=== PATIENT | female | born 1930 | race Caucasian/White ===

== ENCOUNTER 2016-03-03 11:12 | Inpatient (IN) | payer MEDICARE, MEDICAID ==
[2016-03-03] MEDS ORDERED: NORMAL SALINE 1000 ML 1,000 ML IV ONE (11:23)
[2016-03-03] MEDS ORDERED: NORMAL SALINE 1000 ML 500 ML IV ONE ×2 (11:35→12:36)
--- NOTE | 2016-03-03 11:37 | ER Document Report ---
ED Blood Pressure Problem - General Mode of Arrival: Ambulatory Information source: Patient TRAVEL OUTSIDE OF THE [place] IN LAST 30 DAYS: No - HPI Patient complains to provider of: Low blood pressure, Other - "Not feeling well " Onset: Other - 2 weeks Associated symptoms: Other - see above <ASHLEY PETERSEN - Last Filed: 03/03/16 12:36> <IRINAJHONATAN DERAS MCKENZIE - Last Filed: 03/03/16 19:39> - General Stated Complaint: BLOOD PRESSURE ISSUE Notes: 85-year-old female with history of UTIs presents to the ED complaining of "not feeling well" for the past 2 weeks. Patient was being taken to a doctor's appointment from [facility] when a low blood pressure was taken. Patient was instead brought into the ED. Patient additionally complains of bilateral lower extremity edema, feeling faint, trouble urinating, burning with urination, fever , and occasional shortness of breath. Patient states that based on her previous experiences with UTIs, she does not feel like she is having one right now. Patient's primary care provider is Dr. Aguillon. Patient's indoor landscape architect is Dr. Pollard. (ASHLEY PETERSEN) - Related Data Allergies/Adverse Reactions: codeine [Codeine] Allergy (Verified 09/07/13 18:24) erythromycin base [Erythromycin Base] Allergy (Verified 09/07/13 18:24) gluten [Gluten] Allergy (Verified 10/11/14 11:40) iodine [Iodine] Allergy (Verified 10/10/14 22:48) Penicillins Allergy (Verified 09/07/13 18:24) sulfamethoxazole [From Septra DS] Allergy (Verified 10/10/14 22:48) trimethoprim [From Septra DS] Allergy (Verified 10/10/14 22:48) Past Medical History - General Information source: Patient - Social History Smoking Status: Unknown if Ever Smoked Family History: Hypertension - Past Medical History Cardiac Medical History: Reports: Hx Heart Attack, Hx Hypertension, Hx Peripheral Vascular Disease Pulmonary Medical History: Reports: Hx COPD Renal/ Medical History: Reports: Hx Renal Insufficiency, Other - Urinary Tract Infections Musculoskeltal Medical History: Reports Hx Arthritis Psychiatric Medical History: Reports: Hx Dementia - MILD Past Surgical History: Reports: Hx Orthopedic Surgery - hip, right wrist, Hx Vascular Surgery - Iliofemoral stents - Immunizations Hx Diphtheria, Pertussis, Tetanus Vaccination: No Hx Pneumococcal Vaccination: 12/09/12 <ASHLEY PETERSEN - Last Filed: 03/03/16 12:36> Review of Systems - Review of Systems Constitutional: See HPI, Fever, Malaise, Other - feels faint EENT: No symptoms reported Cardiovascular: No symptoms reported Respiratory: See HPI, Short of breath Gastrointestinal: No symptoms reported Genitourinary: See HPI, Burning, Dysuria Female Genitourinary: No symptoms reported Musculoskeletal: See HPI, Leg swelling Skin: No symptoms reported Hematologic/Lymphatic: No symptoms reported Neurological/Psychological: No symptoms reported -: Yes All other systems reviewed and negative <ASHLEY PETERSEN - Last Filed: 03/03/16 12:36> Physical Exam - Vital signs Interpretation: Hypotensive, Tachycardic - General General appearance: Alert In distress: None - HEENT Head: Normocephalic, Atraumatic Eyes: Normal Extraocular movements intact: Yes Pupils: PERRL - Respiratory Respiratory status: No respiratory distress Breath sounds: Normal - Cardiovascular Rhythm: Regular, Tachycardia Heart sounds: Normal auscultation - Abdominal Inspection: Normal - Back Back: Normal - Extremities General upper extremity: Normal inspection, Normal ROM General lower extremity: Edema - bilateral 1+ pitting edema, Normal ROM. No: Normal inspection - Neurological Neuro grossly intact: Yes Cognition: Normal Orientation: AAOx4 [place] Coma Scale Eye Opening: Spontaneous [place] Coma Scale Verbal: Oriented [place] Coma Scale Motor: Obeys Commands [place] Coma Scale Total: 15 Speech: Normal - Psychological Associated symptoms: Normal affect, Normal mood - Skin Skin Temperature: Warm Skin Moisture: Dry Skin Color: Pale <ASHLEY PETERSEN - Last Filed: 03/03/16 12:36> <JHONATAN WILKINS - Last Filed: 03/03/16 19:39> - Vital signs Vitals: Temp Pulse Resp BP Pulse Ox 97.5 F 142 H 18 80/52 L 95 03/03/16 11:30 03/03/16 11:30 03/03/16 11:30 03/03/16 11:30 03/03/16 11:30 (JHONATAN WILKINS) Course - Laboratory Result Diagrams: 03/03/16 11:27 03/03/16 11:27 <ASHLEY PETERSEN - Last Filed: 03/03/16 12:36> - Laboratory Result Diagrams: 03/03/16 11:27 03/03/16 11:27 - Diagnostic Test Radiology reviewed: Reports reviewed - EKG Interpretation by Me EKG shows normal: Sinus rhythm Rate: Tachycardia <JHONATAN WILKINS - Last Filed: 03/03/16 19:39> - Re-evaluation Re-evalutation: 03/03/16 Patient is an 85-year-old female with multiple comorbidities presents with tachycardia, hypotension. Patient initially had complained of dysuria but urine appears normal. Patient has bilateral pleural effusions and also some ascites and abdomen. Abdomen is nontender. No vomiting or diarrhea. Patient has been afebrile in the emergency department. Patient was discussed with hospitalist service and stat echo obtained to look for cardiac effusion. No pericardial effusion noted. Patient will be admitted and treated for pneumonia. She will be admitted to the IM. Patient wishes to be DO NOT RESUSCITATE. Patient is in fair condition at the time of admission. (JHONATAN WILKINS) - Vital Signs Vital signs: Temp Pulse Resp BP Pulse Ox 98.3 F 142 H 17 101/64 95 03/03/16 15:03 03/03/16 11:30 03/03/16 19:30 03/03/16 19:30 03/03/16 19:30 (JHONATAN WILKINS) - Laboratory Laboratory results interpreted by me: 03/03/16 03/03/16 11:27 11:27 WBC 15.8 H RDW 17.7 H Seg Neutrophils % 85.8 H Lymphocytes % 8.6 L Absolute Neutrophils 13.5 H Chloride 111 H BUN 40 H Creatinine 2.83 H Est GFR ( Amer) 19 L Est GFR (Non-Af Amer) 16 L Glucose 70 L Calcium 7.4 L Alkaline Phosphatase 137 H Total Protein 4.3 L Albumin 1.4 L (JHONATAN WILKINS) Critical Care Note - Critical Care Note Total time excluding time spent on procedures (mins): 60 - evaluation and management of tachycardia, hypotension, respiratory distress, fluid overload, multiple re-evaluations, coordination with hospitalist, counseling of patient and family <JHONATAN WILKINS - Last Filed: 03/03/16 19:39> Discharge <ASHLEY PETERSEN - Last Filed: 03/03/16 12:36> - [facility] ICU <JHONATAN WILKINS - Last Filed: 03/03/16 19:39> - Discharge Clinical Impression: [id number] renal failure, Pleural effusion, left, Respiratory distress Hypotension Qualifiers: Hypotension type: unspecified hypotension type Qualified Code(s): I95.9 - Hypotension, unspecified Pneumonia Qualifiers: Pneumonia type: due to unspecified organism Laterality: left Lung location: lower lobe of lung Qualified Code(s): J18.1 - Lobar pneumonia, unspecified organism Fluid overload Qualifiers: Hypervolemia type: unspecified Qualified Code(s): E87.70 - Fluid overload, unspecified Condition: Fair Disposition: ADMITTED INPATIENT Scribe Attestation: 03/03/16 19:38 I personally performed the services described in the documentation, reviewed and edited the documentation which was dictated to the scribe in my presence, and it accurately records my words and actions. (JHONATAN WILKINS) Scribe Documentation - Scribe Written by Scribe:: Rose Gama, 03/03/2016 12:44 acting as scribe for :: Pawel <ASHLEY PETERSEN - Last Filed: 03/03/16 12:36>
[2016-03-03 11:49] LABS: ABSOLUTE EOSINOPHILS # (AUTO) 0.1 10^3/uL (0.0-0.6); ABSOLUTE LYMPHOCYTES (AUTO) 1.3 10^3/uL (0.5-4.7); ABSOLUTE MONOCYTES (AUTO) 0.7 10^3/uL (0.1-1.4); ABSOLUTE NEUT (AUTO) 13.5 10^3/uL (1.7-8.2); BASOPHILS % (AUTO) 0.2 % (0-2); EOSINOPHILS % (AUTO) 0.8 % (0-6); HEMATOCRIT 36.8 % (36.0-47.0); HEMOGLOBIN 12.3 g/dL (12.0-15.5); HGB HCT DIFFERENCE 0.1; LYMPHOCYTES % (AUTO) 8.6 % (13-45); MEAN CORPUSCULAR HEMOGLOBIN 32.3 pg (27.0-33.4); MEAN CORPUSCULAR HGB CONC 33.3 g/dL (32.0-36.0); MEAN CORPUSCULAR VOLUME 97 fl (80-97); MONOCYTES % (AUTO) 4.6 % (3-13); RED CELL DISTRIBUTION WIDTH 17.7 % (11.5-14.0); SEGMENTED NEUTROPHILS % (AUTO) 85.8 % (42-78); WHITE BLOOD COUNT 15.8 10^3/uL (4.0-10.5)
[2016-03-03 11:54] LABS: VENOUS BLOOD BASE EXCESS -4.8 mmol/L; VENOUS BLOOD HCO3 21.5 mmol/L (20-32); VENOUS BLOOD PCO2 44.5 mmHg (35-63); VENOUS BLOOD PH 7.3 (7.30-7.42)
[2016-03-03 11:56] LABS: PROTHROMBIN TIME 14.2 SEC (11.4-15.4)
[2016-03-03 12:06] LABS: APPEARANCE,URINE CLEAR; BILIRUBIN,URINE NEGATIVE (NEGATIVE); GLUCOSE, URINE NEGATIVE (NEGATIVE); KETONES,URINE NEGATIVE (NEGATIVE); LEUKOCYTE ESTERASE,URINE NEGATIVE (NEGATIVE); NITRITE,URINE NEGATIVE (NEGATIVE); PROTEIN,URINE NEGATIVE (NEGATIVE); URINE SPECIFIC GRAVITY 1.013; UROBILINOGEN,URINE NEGATIVE mg/dL (<2.0)
[2016-03-03 12:10] LABS: ALANINE AMINOTRANSFERASE 49 U/L (9-52); ALBUMIN 1.4 g/dL (3.5-5.0); ALKALINE PHOSPHATASE 137 U/L (38-126); ANION GAP 5 (5-19); ASPARTATE AMINO TRANSFERASE 35 U/L (14-36); BILIRUBIN,TOTAL 0.5 mg/dL (0.2-1.3); BLOOD UREA NITROGEN 40 mg/dL (7-20); CALCIUM 7.4 mg/dL (8.4-10.2); CARBON DIOXIDE 22 mmol/L (22-30); CHLORIDE 111 mmol/L (98-107); CREATINE KINASE 70 U/L (30-135); CREATININE RESULT 2.83 mg/dL (0.52-1.25); GLUCOSE 70 mg/dL (75-110); POTASSIUM 4.5 mmol/L (3.6-5.0); SODIUM 137.7 mmol/L (137-145); TOTAL PROTEIN 4.3 g/dL (6.3-8.2)
[2016-03-03 12:21] LABS: CREATINE KINASE MB 3.89 ng/mL (<4.55)
[2016-03-03 12:24] LABS: TROPONIN I 0.134 ng/mL
--- NOTE | 2016-03-03 12:45 | EKG REPORT ---
SEVERITY:- DEFECTIVE ECG - SINUS TACHYCARDIA LOW VOLTAGE THROUGHOUT BORDERLINE R WAVE PROGRESSION, ANTERIOR LEADS BORDERLINE T ABNORMALITIES, DIFFUSE LEADS : Confirmed by: Roney Mora MD 03-Mar-2016 12:44:49
[2016-03-03] MEDS ORDERED: ACETAMINOPHEN 325 MG TABLET PO ONE (14:00)
[2016-03-03] MEDS ORDERED: LEVOFLOXACIN 750 MG/D5W RTU 150 ML IV ONE (15:05)
[2016-03-03] MEDS ORDERED: CEFEPIME 1 GM/D5W RTU 50 ML IV ONE (15:06)
[2016-03-03] MEDS ORDERED: DEXTROSE 5%-WATER 250 ML with PHENYLEPHRINE HCL 40 MG IV PRN ×2 (16:53)
--- NOTE | 2016-03-03 17:19 | PDOC H&P ---
History of Present Illness Admission Date/PCP: SOPHIE ALCANTARA, Patient complains of: SOB pain lower extremities History of Present Illness: GUY WALLACE is a 85 year old female with known hx of CKD stage 4 was brought to ED because of tachycardia and hypotension from Dr Pollard's office she was found extremely edematous , pale, hypotensive and tachycardic After extensive workup patient was found to have left lower lobe pneumonia with an effusion, hypotension and tachycardia profound hypo-albuminemia with 3+ plus edema of the lower extremities An echocardiogram was performed it showed a normal LVEF , and no pericardial effusion a lung scan was low probability for PE Patient was admitted to the ICU for initiation of pressors , antibiotics and close monitoring Case was discussed with Dr Pollard Patient is [id number] Past Medical History Cardiac Medical History: Reports: Myocardial Infarction, Hypertension, Peripheral Vascular Disease Pulmonary Medical History: Reports: Chronic Obstructive Pulmonary Disease (COPD) Renal/ Medical History: Reports: Other - Urinary Tract Infections Musculoskeltal Medical History: Reports: Arthritis Psychiatric Medical History: Reports: Dementia - MILD Past Surgical History Past Surgical History: Reports: Orthopedic Surgery - hip, right wrist, Vascular Surgery - Iliofemoral stents Social History Smoking Status: Unknown if Ever Smoked Frequency of Alcohol Use: None Hx Recreational Drug Use: No Drugs: None Hx Prescription Drug Abuse: No - Advance Directive Resuscitation Status: Do Not Resuscitate Surrogate healthcare decision maker:: daughter Family History Family History: Hypertension Parental Family History Reviewed: Yes Children Family History Reviewed: Yes Sibling(s) Family History Reviewed.: Yes Medication/Allergy Home Medications: Nitroglycerin [Nitrostat 0.4 mg (1/150 Gr) Tabs 25/Bottle] 1 tab PO ASDIR PRN Aspirin [Aspirin 81 mg Chewable Tablet] 81 mg PO DAILY #0 tab.chew 03/05/15 Amlodipine Besylate [Norvasc 5 mg Tablet] 5 mg PO Q12 07/01/15 Calcium Carbonate [Calcium] 600 mg PO BID 07/01/15 Cholecalciferol (Vitamin D3) [Vitamin D3 5000 unit Tablet] 5,000 unit PO DAILY 07/01/15 Citalopram Hydrobromide [Celexa 20 mg Tablet] 20 mg PO DAILY 07/01/15 Gluc/Yanick-MSM#1/Vit C/Jose Francisco/Bor [Ajhxowl-Wymuc-ROR Complex Cplt] 1 each PO DAILY 07/01/15 Hydrocodone/Acetaminophen [Hydrocodon-Acetaminophen 5-325] 1 tab PO ASDIR PRN Ipratropium/Albuterol Sulfate [Duoneb 3 ml Ampul] 3 ml IH QID 07/01/15 Isosorbide Mononitrate [Ismo 20 mg Tablet] 20 mg PO DAILY 07/01/15 Amlodipine Besylate [Norvasc 5 mg Tablet] 5 mg PO DAILY #0 tablet 07/07/15 Aspirin [Ecotrin 81 mg EC Tablet] 81 mg PO DAILY #0 tabec 07/07/15 Budesonide/Formoterol Fumarate [Symbicort HFA 160-4.5 mcg Inhaler 6 gm] 2 puff IH DAILY #0 inhaler 07/07/15 Cetirizine HCl [Zyrtec 10 mg Tablet] 10 mg PO DAILY #0 tablet 07/07/15 Citalopram Hydrobromide [Celexa 20 mg Tablet] 20 mg PO DAILY #0 tablet 07/07/15 Ferrous Sulfate [Feosol 325 mg Tablet] 325 mg PO DAILY #0 tablet 07/07/15 Hydralazine HCl [Apresoline 25 mg Tablet] 25 mg PO Q8 #0 tablet 07/07/15 Hydrocodone/Acetaminophen [Sidney 5-325 mg Tablet] 1 tab PO Q6HP PRN #0 tablet Ipratropium/Albuterol Sulfate [Duoneb 3 ml Ampul] 3 ml NEB RTQ6HP PRN #0 vial.neb 07/07/15 Isosorbide Mononitrate [Imdur 30 mg Tablet.er] 30 mg PO DAILY #0 tab.er.24h 05/19 Lansoprazole [Prevacid 30 mg Odt Tablet] 30 mg PO Q6AM #0 tab.rap.dr 07/07/15 Risperidone [Risperdal 0.25 mg Tablet] 0.125 mg PO DAILY #0 tablet 07/07/15 Allergies/Adverse Reactions: codeine [Codeine] Allergy (Verified 09/07/13 18:24) erythromycin base [Erythromycin Base] Allergy (Verified 09/07/13 18:24) gluten [Gluten] Allergy (Verified 10/11/14 11:40) iodine [Iodine] Allergy (Verified 10/10/14 22:48) Penicillins Allergy (Verified 09/07/13 18:24) sulfamethoxazole [From Septra DS] Allergy (Verified 10/10/14 22:48) trimethoprim [From Septra DS] Allergy (Verified 10/10/14 22:48) Review of Systems Constitutional: PRESENT: as per HPI. ABSENT: chills, fever(s), headache(s) Eyes: ABSENT: visual disturbances Ears: ABSENT: hearing changes Respiratory: PRESENT: dyspnea Gastrointestinal: ABSENT: abdominal pain, coffee ground emesis, diarrhea, dysphagia Musculoskeletal: ABSENT: joint swelling Integumentary: ABSENT: rash, wounds Neurological: PRESENT: weakness Psychiatric: PRESENT: depression Hematologic/Lymphatic: ABSENT: easy bleeding, easy bruising Allergic/Immunologic: ABSENT: seasonal rhinorrhea Physical Exam Vital Signs: Temp Pulse Resp BP Pulse Ox 98.3 F 142 H 14 100/68 95 03/03/16 15:03 03/03/16 11:30 03/03/16 13:00 03/03/16 13:00 03/03/16 13:00 General appearance: PRESENT: no acute distress, other - chronically ill looking pale Head exam: PRESENT: atraumatic, normocephalic Eye exam: PRESENT: conjunctiva pink, EOMI, PERRLA. ABSENT: scleral icterus Ear exam: PRESENT: normal external ear exam Neck exam: ABSENT: carotid bruit, JVD, lymphadenopathy, thyromegaly Respiratory exam: PRESENT: accessory muscle use Cardiovascular exam: PRESENT: RRR, tachycardia. ABSENT: diastolic murmur, rubs , systolic murmur Pulses: PRESENT: normal dorsalis pedis pul GI/Abdominal exam: PRESENT: normal bowel sounds, soft. ABSENT: distended, guarding, mass, organolmegaly, rebound, tenderness Extremities exam: PRESENT: other - 3 + edema bilaterally Neurological exam: PRESENT: alert, awake, oriented to person, oriented to place , oriented to time, CN II-XII grossly intact Skin exam: PRESENT: dry, intact, warm. ABSENT: cyanosis, rash Results Laboratory Results: 03/03/16 11:27 03/03/16 11:27 03/03/16 03/03/16 03/03/16 11:27 11:27 11:27 WBC 15.8 H RBC 3.80 Hgb 12.3 Hct 36.8 MCV 97 MCH 32.3 MCHC 33.3 RDW 17.7 H Plt Count 282 Seg Neutrophils % 85.8 H Lymphocytes % 8.6 L Monocytes % 4.6 Eosinophils % 0.8 Basophils % 0.2 Absolute Neutrophils 13.5 H Absolute Lymphocytes 1.3 Absolute Monocytes 0.7 Absolute Eosinophils 0.1 Absolute Basophils 0.0 VBG pH VBG pCO2 VBG HCO3 VBG Base Excess Sodium 137.7 Potassium 4.5 Chloride 111 H Carbon Dioxide 22 Anion Gap 5 BUN 40 H Creatinine 2.83 H Est GFR ( Amer) 19 L Est GFR (Non-Af Amer) 16 L Glucose 70 L Lactic Acid Calcium 7.4 L Total Bilirubin 0.5 AST 35 ALT 49 Alkaline Phosphatase 137 H Total Protein 4.3 L Albumin 1.4 L Urine Color Urine Appearance Urine pH Ur Specific [place] Urine Protein Urine Glucose (UA) Urine Ketones Urine Blood Urine Nitrite Ur Leukocyte Esterase Urine WBC (Auto) Blood Type A POSITIVE Antibody Screen NEGATIVE 03/03/16 03/03/16 03/03/16 11:38 11:38 11:53 WBC RBC Hgb Hct MCV MCH MCHC RDW Plt Count Seg Neutrophils % Lymphocytes % Monocytes % Eosinophils % Basophils % Absolute Neutrophils Absolute Lymphocytes Absolute Monocytes Absolute Eosinophils Absolute Basophils VBG pH 7.30 VBG pCO2 44.5 VBG HCO3 21.5 VBG Base Excess -4.8 Sodium Potassium Chloride Carbon Dioxide Anion Gap BUN Creatinine Est GFR ( Amer) Est GFR (Non-Af Amer) Glucose Lactic Acid 1.0 Calcium Total Bilirubin AST ALT Alkaline Phosphatase Total Protein Albumin Urine Color YELLOW Urine Appearance CLEAR Urine pH 5.0 Ur Specific [place] 1.013 Urine Protein NEGATIVE Urine Glucose (UA) NEGATIVE Urine Ketones NEGATIVE Urine Blood NEGATIVE Urine Nitrite NEGATIVE Ur Leukocyte Esterase NEGATIVE Urine WBC (Auto) 1 Blood Type Antibody Screen 03/03/16 03/03/16 03/03/16 11:27 11:27 14:12 Creatine Kinase 70 CK-MB (CK-2) 3.89 Troponin I 0.134 0.117 EKG Comments: sinus tachycardia low voltage Impressions: Chest X-Ray 03/03/16 11:23 IMPRESSION: LEFT LOWER LOBE INFILTRATE AND PROBABLE PLEURAL EFFUSION. Chest CT 03/03/16 12:40 IMPRESSION: BILATERAL PLEURAL EFFUSIONS, LEFT GREATER THAN RIGHT, WITH BASILAR ATELECTASIS. THERE IS ALSO EVIDENCE OF MODERATE ASCITES IN THE VISUALIZED UPPER ABDOMEN. Lung Scan-VQ NM 03/03/16 14:48 IMPRESSION: DECREASED ACTIVITY IN THE LEFT LUNG SECONDARY TO PLEURAL EFFUSION. LOW PROBABILITY FOR PULMONARY EMBOLISM. Assessment & Plan - Diagnosis (1) Hypoalbuminemia Is this a current diagnosis for this admission?: YesPlan: ? nephrotic syndrome versus poor nutrition serum albumin is 1.4 will obtain urine protein / creatinine infuse 50 g protein prior to initiating pressors (2) Hypotension Qualifiers: Hypotension type: unspecified hypotension type Qualified Code(s): I95.9 - Hypotension, unspecified Is this a current diagnosis for this admission?: YesPlan: albumin infusion start pressors : Neosynephrine IV (3) [id number]-dz-[id number] renal failure Is this a current diagnosis for this admission?: YesPlan: CKD stage 4 (4) COPD (chronic obstructive pulmonary disease) Qualifiers: COPD type: unspecified COPD Qualified Code(s): J44.9 - Chronic obstructive pulmonary disease, unspecified Is this a current diagnosis for this admission?: YesPlan: stable at this time O2 supplementation (5) Pleural effusion, left Is this a current diagnosis for this admission?: YesPlan: moderate with infiltrate likely parapneumonic effusion (6) Pneumonia Qualifiers: Pneumonia type: due to unspecified organism Laterality: left Lung location: lower lobe of lung Qualified Code(s): J18.1 - Lobar pneumonia, unspecified organism Is this a current diagnosis for this admission?: YesPlan: Hospital acquired pneumonia - [facility] treat with cefepime / levaquin / vanco (7) Fluid overload Qualifiers: Hypervolemia type: unspecified Qualified Code(s): E87.70 - Fluid overload, unspecified Is this a current diagnosis for this admission?: YesPlan: treat with small doses of lasix when BP permits (8) Elevated troponin Is this a current diagnosis for this admission?: YesPlan: secondary to hypotension will obtain serial measurements q6h - Time Time Spent: Greater than 70 Minutes
--- NOTE | 2016-03-03 17:20 | XCELERA REPORT ---
[address] [address] Transthoracic Echocardiogram Report Name: GUY WALLACE Age: 85 yrs Gender: Female : 1930 Patient Status: Emergency Patient Location: ER Study Date: 03/03/2016 03:56 PM Height: 63 in Weight: 158 lb BSA: 1.7 m2 Procedure: A two-dimensional transthoracic echocardiogram with color flow and Doppler was performed in limited views only. Study Quality: Fair. Reason For Study: hypotension tachycardia Pericardial effusion with tamponade History: hypotension / tachycardia / Pericardial effusion with tamponade. Ordering Physician: LORI GAUTHIER Performed By: Neeraj Munoz Interpretation Summary There is no pericardial effusion. MMode/2D Measurements \T\ Calculations RVDd: 2.6 cm LVIDd: 3.0 cm FS: 34.4 % Ao root diam: 2.8 cm IVSd: 1.1 cm LVIDs: 2.0 cm EDV(Teich): 36.4 ml LVPWd: 1.1 cm ESV(Teich): 12.7 ml Ao root area: 6.2 cm2 EF(Teich): 65.0 % LA dimension: 3.0 cm Doppler Measurements \T\ Calculations MV E max jana: MV P1/2t max jana: PA V2 max: TR max jana: 110.8 cm/sec 111.9 cm/sec 69.1 cm/sec 268.8 cm/sec MV A max jana: MV P1/2t: 42.5 msec PA max PG: TR max P.2 cm/sec 1.9 mmHg 28.9 mmHg MV E/A: 2.1 MVA(P1/2t): 5.2 cm2 RVSP(TR): MV dec slope: 38.9 mmHg 771.1 cm/sec2 MV dec time: 0.16 sec RAP systole: 10.0 mmHg Effusions There is no pericardial effusion. : LORI GAUTHIER > Alanis Hardy
[2016-03-03] MEDS ORDERED: VANCOMYCIN HCL 0 MG in DEXTROSE 5%-WATER 250 ML IV NR (17:30)
[2016-03-03] MEDS: ALBUMIN HUMAN 50 ML IV SCH ×4 (18:05→18:20)
[2016-03-03] MEDS ORDERED: HYDROCORTISONE SOD SUCCINATE INJ/PF 100 MG/2 ML SDV IV ONE (18:49)
[2016-03-03] MEDS: CEFEPIME HCL 0.5 GM in DEXTROSE 5%-WATER 25 ML IV SCH (18:53)
--- NOTE | 2016-03-03 19:39 | EKG REPORT ---
SEVERITY:- DEFECTIVE ECG - SINUS TACHYCARDIA LOW VOLTAGE THROUGHOUT BORDERLINE R WAVE PROGRESSION, ANTERIOR LEADS NONSPECIFIC T ABNORMALITIES, DIFFUSE LEADS : Confirmed by: Roney Mora MD 03-Mar-2016 19:38:23
[2016-03-03] MEDS ORDERED: LEVOFLOXACIN 500 MG/D5W RTU 500 MG/100 ML RTUPB IV ONE (21:00)
[2016-03-03] MEDS ORDERED: LEVOFLOXACIN 250 MG/D5W RTU 250 MG/50 ML RTUPB IV SCH (22:00)
[2016-03-03] MEDS ORDERED: VANCOMYCIN HCL 750 MG in DEXTROSE 5%-WATER 250 ML IV SCH (22:00)
[2016-03-03] MEDS ORDERED: FUROSEMIDE INJ/PF 20 MG/2 ML SDV IV SCH (22:00)
[2016-03-03] MEDS: HYDROCORTISONE SOD SUCCINATE INJ/PF 100 MG/2 ML SDV IV SCH (22:09)
[2016-03-03] MEDS: HEPARIN SOD (PORCINE) 5,000 UNIT/ML 1 ML SYRINGE SUBCUT SCH (22:11)
[2016-03-04] MEDS ORDERED: INFLUENZA ADLT QUAD (36MOS+) 2016-17 VAC 0.5 ML SYR IM PRN (00:37)
[2016-03-04 01:16] LABS: ALANINE AMINOTRANSFERASE 46 U/L (9-52); ALKALINE PHOSPHATASE 86 U/L (38-126); ANION GAP 7 (5-19); ASPARTATE AMINO TRANSFERASE 29 U/L (14-36); BILIRUBIN,TOTAL 0.7 mg/dL (0.2-1.3); BLOOD UREA NITROGEN 40 mg/dL (7-20); CALCIUM 7.5 mg/dL (8.4-10.2); CARBON DIOXIDE 17 mmol/L (22-30); CHLORIDE 113 mmol/L (98-107); CREATININE RESULT 2.64 mg/dL (0.52-1.25); GLUCOSE 115 mg/dL (75-110); MAGNESIUM 1.5 mg/dL (1.6-2.3); POTASSIUM 4.4 mmol/L (3.6-5.0); SODIUM 137.2 mmol/L (137-145); TOTAL PROTEIN 4.2 g/dL (6.3-8.2)
[2016-03-04 01:34] LABS: HEMATOCRIT 28.4 % (36.0-47.0); HGB HCT DIFFERENCE 0.4; MEAN CORPUSCULAR HEMOGLOBIN 32.4 pg (27.0-33.4); MEAN CORPUSCULAR HGB CONC 33.8 g/dL (32.0-36.0); MEAN CORPUSCULAR VOLUME 96 fl (80-97); RED BLOOD COUNT 2.97 10^6/uL (3.72-5.28); RED CELL DISTRIBUTION WIDTH 18.1 % (11.5-14.0); WHITE BLOOD COUNT 16.1 10^3/uL (4.0-10.5)
[2016-03-04 01:41] LABS: HEMOGLOBIN 9.6 g/dL (12.0-15.5)
[2016-03-04 01:42] LABS: ANISOCYTOSIS 1+; BASOPHILS % (MANUAL) 0 % (0-2); EOSINOPHILS % (MANUAL) 0 % (0-6); LYMPHOCYTES % (MANUAL) 1 % (13-45); OVALOCYTES 1+; TOTAL CELLS COUNTED 100; TOXIC GRANULATION SLIGHT; TOXIC VACUOLATION PRESENT
[2016-03-04 01:43] LABS: BURR CELLS SLIGHT; POIKILOCYTOSIS SLIGHT
[2016-03-04 02:21] LABS: CREATINE KINASE MB 3.18 ng/mL (<4.55)
[2016-03-04] MEDS: CEFEPIME HCL 0.5 GM in DEXTROSE 5%-WATER 25 ML IV SCH ×2 (06:06→19:04)
[2016-03-04] MEDS: HEPARIN SOD (PORCINE) 5,000 UNIT/ML 1 ML SYRINGE SUBCUT SCH ×2 (06:08→14:00)
[2016-03-04] MEDS: HYDROCORTISONE SOD SUCCINATE INJ/PF 100 MG/2 ML SDV IV SCH ×3 (06:08→22:27)
--- NOTE | 2016-03-04 07:39 | PDOC PROGRESS REPORT ---
Subjective Progress Note for:: 03/04/16 Subjective:: Patient states she's feeling a lot better Somewhat hypothermic with a bear hugger No shortness of breath no chest pain no abdominal pain She states her breathing is better Output was 600 last night Her blood pressure is 120 systolic on the Mak-Synephrine drip at 20 g Tachycardia somewhat improved with heart rate of 93 Physical Exam Vital Signs: Temp Pulse Resp BP Pulse Ox 97.9 F 124 H 14 104/61 93 03/04/16 05:28 03/03/16 23:59 03/04/16 06:09 03/04/16 06:09 03/04/16 06:09 Intake & Output 03/03/16 03/04/16 03/05/16 00:59 00:59 00:59 Intake Total 372 Output Total 600 190 Balance -600 182 Weight 69.5 kg 69.5 kg General appearance: PRESENT: no acute distress, cooperative Head exam: PRESENT: atraumatic, normocephalic Eye exam: PRESENT: conjunctiva pink, EOMI, PERRLA. ABSENT: scleral icterus Neck exam: ABSENT: carotid bruit, JVD, lymphadenopathy, thyromegaly Respiratory exam: PRESENT: clear to auscultation anselmo, other - Diminished breath sounds both bases. ABSENT: rales, rhonchi, wheezes Cardiovascular exam: PRESENT: RRR. ABSENT: diastolic murmur, rubs, systolic murmur GI/Abdominal exam: PRESENT: normal bowel sounds, soft. ABSENT: distended, guarding, mass, organolmegaly, rebound, tenderness Neurological exam: PRESENT: alert Results Laboratory Results: 03/04/16 00:43 03/04/16 00:43 03/04/16 03/04/16 03/04/16 00:43 00:43 00:43 WBC 16.1 H RBC 2.97 L Hgb 9.6 L D Hct 28.4 L MCV 96 MCH 32.4 MCHC 33.8 RDW 18.1 H Plt Count 244 Seg Neutrophils % Not Reportable Lymphocytes % Not Reportable Monocytes % Not Reportable Eosinophils % Not Reportable Basophils % Not Reportable Absolute Neutrophils Not Reportable Absolute Lymphocytes Not Reportable Absolute Monocytes Not Reportable Absolute Eosinophils Not Reportable Absolute Basophils Not Reportable Sodium 137.2 Potassium 4.4 Chloride 113 H Carbon Dioxide 17 L Anion Gap 7 BUN 40 H Creatinine 2.64 H Est GFR ( Amer) 21 L Est GFR (Non-Af Amer) 17 L Glucose 115 H Calcium 7.5 L Magnesium 1.5 L Total Bilirubin 0.7 AST 29 ALT 46 Alkaline Phosphatase 86 Total Protein 4.2 L Albumin 2.0 L TSH 3.48 03/03/16 03/04/16 17:49 00:43 CK-MB (CK-2) 3.37 3.18 NT-Pro-B Natriuret Pep [id number] H Impressions: Chest X-Ray 03/03/16 11:23 IMPRESSION: LEFT LOWER LOBE INFILTRATE AND PROBABLE PLEURAL EFFUSION. Chest CT 03/03/16 12:40 IMPRESSION: BILATERAL PLEURAL EFFUSIONS, LEFT GREATER THAN RIGHT, WITH BASILAR ATELECTASIS. THERE IS ALSO EVIDENCE OF MODERATE ASCITES IN THE VISUALIZED UPPER ABDOMEN. Lung Scan-VQ NM 03/03/16 14:48 IMPRESSION: DECREASED ACTIVITY IN THE LEFT LUNG SECONDARY TO PLEURAL EFFUSION. LOW PROBABILITY FOR PULMONARY EMBOLISM. Assessment & Plan - Diagnosis (1) Hypoalbuminemia Is this a current diagnosis for this admission?: YesPlan: Urine protein is pending To recheck a serum albumen tomorrow Patient may have her nephrotic syndrome or severe hypoalbuminemia may be nutritional in etiology We will continue albumin infusion prior to Lasix (2) Hypotension Qualifiers: Hypotension type: unspecified hypotension type Qualified Code(s): I95.9 - Hypotension, unspecified Is this a current diagnosis for this admission?: YesPlan: The etiology of hypotension is not totally clear Patient may be in septic shock although the lactic acid was normal She did respond to Mak-Synephrine To continue pressors; we are holding IV fluids at this time as the patient is clinically fluid overloaded Continue hydrocortisone (3) Nbmob-cx-hcusahx renal failure Is this a current diagnosis for this admission?: Yes (4) COPD (chronic obstructive pulmonary disease) Qualifiers: COPD type: unspecified COPD Qualified Code(s): J44.9 - Chronic obstructive pulmonary disease, unspecified Is this a current diagnosis for this admission?: YesPlan: Patient has a history of COPD It appears well compensated at this time; (5) Pleural effusion, left Is this a current diagnosis for this admission?: YesPlan: Bilateral pleural effusions Patient did have left-sided thoracentesis during her last admission We will continue Lasix and reevaluate Patient presented with anasarca including bilateral pleural effusion and ascites peripheral edema likely related to the severe hypoalbuminemia (6) Pneumonia Qualifiers: Pneumonia type: due to unspecified organism Laterality: left Lung location: lower lobe of lung Qualified Code(s): J18.1 - Lobar pneumonia, unspecified organism Is this a current diagnosis for this admission?: YesPlan: Left lower lobe infiltrate and leukocytosis Treated as hospital-acquired pneumonia was triple coverage (7) Fluid overload Qualifiers: Hypervolemia type: unspecified Qualified Code(s): E87.70 - Fluid overload, unspecified Is this a current diagnosis for this admission?: YesPlan: Secondary to severe hypoalbuminemia continue infusion of albumin and Lasix IV (8) Elevated troponin Is this a current diagnosis for this admission?: YesPlan: Likely troponin leak There is no evidence of a non-STEMI - Time Critical Time spent with patient: 25-34 minutes - 30 minutes critical time
[2016-03-04] MEDS ORDERED: ALBUMIN HUMAN 50 ML IV SCH (08:00)
[2016-03-04] MEDS: ALBUMIN HUMAN 50 ML IV SCH ×2 (10:38→20:43)
[2016-03-04] MEDS: FUROSEMIDE INJ/PF 20 MG/2 ML SDV IV SCH ×2 (11:27→22:26)
--- NOTE | 2016-03-04 14:08 | Operative Report ---
Operative Report DATE OF SURGERY: 03/04/16 PREOPERATIVE DIAGNOSIS: Stage IV sacral decubitus POSTOPERATIVE DIAGNOSIS: Same OPERATION: Excisional debridement of skin, subcutaneous tissue chronic tissue from sacral decubitus SURGEON: KEN MASON ANESTHESIA: Other - none TISSUE REMOVED OR ALTERED: Necrotic skin and subcutaneous tissue COMPLICATIONS: None ESTIMATED BLOOD LOSS: none INTRAOPERATIVE FINDINGS: See below PROCEDURE: Summary of procedure patient placed in the left lateral decubitus position. Surgical time out conducted. Using pickup, #10 blade, the 3 cm diameter full-thickness necrotic eschar overlying the stage IV decubitus was debrided. The undermined cavity extending for centimeters in diameter was irrigated with soapy water. The majority of the necrotic subcutaneous tissue was excisionally debrided with pickups, and Fairchild scissors using my right hand. A minimal residual amount of nonviable tissue was left in the recesses of the wound discomfort. The wound was repacked with small portion of saline gauze. Dry by 4 x 4 and tape applied. Postoperative procedure well. Dressing changes orders placed into the computer. Pressure offloading by rotating patient right to left side and back again will help wound healing process.
--- NOTE | 2016-03-04 17:10 | PDOC CONSULTATION ---
Consultation Consult Date: 03/04/16 Attending physician:: LORI GAUTHIER Consult reason:: I was asked by Dr. Gauthier to see this patient because of worsening kidney function and edema. 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 Her kidney function was also mildly worse with her labs on March 02 she has some BUN of 38 and creatinine of 2.63 with estimated GFR of 17 compared to a BUN of 32 and creatinine of 2.24 with estimated GFR of 21 1 07/07/2015. Because of this presentation I advised the patient to go to the emergency room for further evaluation and management. She has the same findings in the emergency room upon presentation. Further history from the half-way at [facility] that I obtained from the nurses revealed that the patient has been refusing her medications for at least the last couple days. Her vital signs in the half-way showed that her blood pressure has been running 120s over 70s to 80s with pulse rate in the 70s. Patient has gained 6 pounds due to the edema. Patient also initial report some weakness, dizziness and some shortness of breath when I saw her yesterday. Today when I saw her again with her granddaughter at bedside, they confirmed that she has not really been eating much in the half-way. Patient claims that the food is cold so she doesn't want to eat. Patient reiterates that she just wants to be let go and doesn't want much treatment. She also reiterates that she does not want dialysis at any time. However when I ask her if she wants to continue that current treatment that we are doing she also said that she wants that for now. Workup in the emergency room upon presentation include chest x-ray which shows left lower lobe infiltrate. CT scan of the chest showed bilateral pleural effusion, left greater than the right. VQ scan showed low probability for pulmonary embolism. Echocardiogram showed normal ejection fraction of 65% without any pericardial effusion. Her albumin was very low at 1.4. She has some leukocytosis. Her urinalysis however did not show any significant proteinuria nor hematuria. Her kidney function was unchanged from earlier. I discussed the case with Dr. Gauthier yesterday. Patient is now being given albumin and Lasix. So far she is putting out a good amount of urine output. She is also being given IV antibiotics. Because of hypotension she was started on Mak-Synephrine. So far her blood pressure is being sustained on the 90s to low 100s for systolic blood pressure. She continues to have very poor intake. Past Medical History Cardiac Medical History: Reports: CHF-Diastolic, Coronary Artery Disease, Hypertension-primary, Myocardial Infarction, Peripheral Vascular Disease, Other - Paroxysmal atrial fibrillation Pulmonary Medical History: Reports: Chronic Obstructive Pulmonary Disease (COPD) Renal/ Medical History: Reports: Chronic Kidney Disease Stage IV, Proteinuria - Non-nephrotic range, Other - Urinary Tract Infections, left atrophic kidney GI Medical History: Reports: Gastroesophageal Reflux Disease Musculoskeltal Medical History: Reports: Arthritis, Rheumatoid Arthritis Psychiatric Medical History: Reports: Dementia - MILD Past Surgical History Past Surgical History: Reports: Coronary Stent - 2, Orthopedic Surgery - Hip joint reconstruction, recently., Vascular Surgery - Iliofemoral stents Social History Information Source: Patient Lives with: [facility] Smoking Status: Former Smoker - Stopped at 15 years old Frequency of Alcohol Use: None Hx Recreational Drug Use: No Drugs: None Hx Prescription Drug Abuse: No - Advance Directive Resuscitation Status: Do Not Resuscitate Family History Family History: DM - Brother, Hypertension - Brother, Malignancy - Maternal Grandmother has ovarian cancer Parental Family History Reviewed: Yes Children Family History Reviewed: Unknown Sibling(s) Family History Reviewed.: Yes Medication/Allergy Home Medications: Nitroglycerin [Nitrostat 0.4 mg (1/150 Gr) Tabs 25/Bottle] 1 tab PO ASDIR PRN Aspirin [Aspirin 81 mg Chewable Tablet] 81 mg PO DAILY #0 tab.chew 03/05/15 Calcium Carbonate [Calcium] 600 mg PO PRN PRN 07/01/15 Citalopram Hydrobromide [Celexa 20 mg Tablet] 20 mg PO DAILY 07/01/15 Gluc/Yanick-MSM#1/Vit C/Jose Francisco/Bor [Vfxyanv-Tyyje-QPS Complex Cplt] 1 each PO DAILY 07/01/15 Ipratropium/Albuterol Sulfate [Duoneb 3 ml Ampul] 3 ml IH QID 07/01/15 Amlodipine Besylate [Norvasc 5 mg Tablet] 5 mg PO DAILY #0 tablet 07/07/15 Cetirizine HCl [Zyrtec 10 mg Tablet] 10 mg PO DAILY #0 tablet 07/07/15 Hydralazine HCl [Apresoline 25 mg Tablet] 25 mg PO Q8 #0 tablet 07/07/15 Hydrocodone/Acetaminophen [[place] 5-325 mg Tablet] 1 tab PO Q6HP PRN #0 tablet Ipratropium/Albuterol Sulfate [Duoneb 3 ml Ampul] 3 ml NEB RTQ6HP PRN #0 vial.neb 07/07/15 Isosorbide Mononitrate [Imdur 30 mg Tablet.er] 30 mg PO DAILY #0 tab.er.24h 05/19 Allergies/Adverse Reactions: codeine [Codeine] Allergy (Verified 09/07/13 18:24) erythromycin base [Erythromycin Base] Allergy (Verified 09/07/13 18:24) gluten [Gluten] Allergy (Verified 10/11/14 11:40) iodine [Iodine] Allergy (Verified 10/10/14 22:48) Penicillins Allergy (Verified 09/07/13 18:24) sulfamethoxazole [From Septra DS] Allergy (Verified 10/10/14 22:48) trimethoprim [From Septra DS] Allergy (Verified 10/10/14 22:48) Review of Systems All systems: reviewed and no additional remarkable complaints except as stated Review of Systems: Constitutional: ABSENT: chills, fatigue, fever(s), headache(s), weight loss, admits weight gain Eyes: ABSENT: visual disturbances Ears: ABSENT: hearing changes Cardiovascular: ABSENT: chest pain, dyspnea on exertion, edema, orthropnea, admits palpitations and shortness of breath Respiratory: ABSENT: cough, hemoptysis Gastrointestinal: ABSENT: abdominal pain, constipation, diarrhea, hematemesis, hematochezia, nausea, vomiting Genitourinary: ABSENT: dysuria, hematuria Musculoskeletal: ABSENT: joint swelling Integumentary: ABSENT: rash, wounds Neurological: ABSENT: abnormal gait, abnormal speech, confusion, focal weakness , numbness, syncope, admits dizziness Psychiatric: ABSENT: anxiety, depression Endocrine: ABSENT: cold intolerance, heat intolerance, polydipsia, polyuria Hematologic/Lymphatic: ABSENT: easy bleeding, easy bruising, lymphadenopathy Physical Exam Vital Signs: Temp Pulse Resp BP Pulse Ox 99.1 F 86 19 105/64 94 03/04/16 14:00 03/04/16 14:00 03/04/16 14:00 03/04/16 14:00 03/04/16 14:00 Intake & Output 03/03/16 03/04/16 03/05/16 06:59 06:59 06:59 Intake Total 372 Output Total 790 910 Balance -418 -910 Weight 69.5 kg Exam: General appearance: no acute distress, cooperative, well-developed, well- nourished Head exam: PRESENT: atraumatic, normocephalic Eye exam: PRESENT: Conjunctiva pale, EOMI, PERRLA. ABSENT: conjunctival injection, scleral icterus Mouth exam: PRESENT: moist, neck supple, tongue midline Neck exam: PRESENT: full ROM. ABSENT: carotid bruit, JVD, lymphadenopathy, thyromegaly Respiratory exam: PRESENT: Diminished to auscultation bilaterally. ABSENT: rales, rhonchi, stridor, wheezes Cardiovascular exam: PRESENT: RRR, +S1, +S2. ABSENT: systolic murmur Pulses: PRESENT: normal radial pulses, normal dorsalis pedis pulses GI/Abdominal exam: PRESENT: normal bowel sounds, soft. ABSENT: guarding, mass, tenderness Rectal exam: deferred Extremities exam: PRESENT: full ROM. ABSENT: calf tenderness, grade 3 bilateral pedal edema and edema on her upper extremities as well Musculoskeletal: PRESENT: full ROM. ABSENT: deformity Neurological exam: PRESENT: alert, Awake, Oriented to person, Oriented to place , Oriented to time, reflexes normal, CN II-XII grossly intact. ABSENT: motor sensory deficit Psychiatric exam: PRESENT: appropriate affect, normal mood. ABSENT: homicidal ideation, suicidal ideation Skin exam: PRESENT: intact, dry, warm. ABSENT: rash Results Laboratory Results: 03/04/16 00:43 03/04/16 00:43 03/04/16 03/04/16 03/04/16 00:43 00:43 00:43 WBC 16.1 H RBC 2.97 L Hgb 9.6 L D Hct 28.4 L MCV 96 MCH 32.4 MCHC 33.8 RDW 18.1 H Plt Count 244 Seg Neutrophils % Not Reportable Lymphocytes % Not Reportable Monocytes % Not Reportable Eosinophils % Not Reportable Basophils % Not Reportable Absolute Neutrophils Not Reportable Absolute Lymphocytes Not Reportable Absolute Monocytes Not Reportable Absolute Eosinophils Not Reportable Absolute Basophils Not Reportable Sodium 137.2 Potassium 4.4 Chloride 113 H Carbon Dioxide 17 L Anion Gap 7 BUN 40 H Creatinine 2.64 H Est GFR ( Amer) 21 L Est GFR (Non-Af Amer) 17 L Glucose 115 H Calcium 7.5 L Magnesium 1.5 L Total Bilirubin 0.7 AST 29 ALT 46 Alkaline Phosphatase 86 Total Protein 4.2 L Albumin 2.0 L TSH 3.48 03/03/16 03/04/16 17:49 00:43 CK-MB (CK-2) 3.37 3.18 NT-Pro-B Natriuret Pep [id number] H Impressions: Chest X-Ray 03/03/16 11:23 IMPRESSION: LEFT LOWER LOBE INFILTRATE AND PROBABLE PLEURAL EFFUSION. Chest CT 03/03/16 12:40 IMPRESSION: BILATERAL PLEURAL EFFUSIONS, LEFT GREATER THAN RIGHT, WITH BASILAR ATELECTASIS. THERE IS ALSO EVIDENCE OF MODERATE ASCITES IN THE VISUALIZED UPPER ABDOMEN. Lung Scan-VQ NM 03/03/16 14:48 IMPRESSION: DECREASED ACTIVITY IN THE LEFT LUNG SECONDARY TO PLEURAL EFFUSION. LOW PROBABILITY FOR PULMONARY EMBOLISM. Assessment & Plan - Diagnosis (1) Tnypg-[id number] renal failure Is this a current diagnosis for this admission?: YesPlan: The acute worsening of kidney function is most likely secondary to relative hypotension due to poor oral intake. The patient has a baseline stage IV chronic kidney disease due to hypertensive nephrosclerosis with known non- nephrotic range proteinuria. She does not have nephrotic syndrome. Currently the patient is nonoliguric. No indication for any acute renal replacement therapy. The patient also does not want any kind of dialysis treatment at any time. (2) Hypotension Qualifiers: Hypotension type: unspecified hypotension type Qualified Code(s): I95.9 - Hypotension, unspecified Is this a current diagnosis for this admission?: YesPlan: Likely secondary to intravascular hypovolemia with associated hypoalbuminemia. Questionable if she is really septic. Currently she is being maintained on Mak- Synephrine drip. (3) Hypoalbuminemia Is this a current diagnosis for this admission?: YesPlan: This is most likely secondary to nutritional deficiency due to poor by mouth intake. I encouraged the patient to start eating high-protein diet. Start the patient on high-protein supplements. Continue IV albumin temporarily. I explained to the patient and her granddaughter at bedside that this is a temporary relief of for underlying issue of hypoalbuminemia and she needs to start eating a little bit better. (4) Fluid overload Qualifiers: Hypervolemia type: unspecified Qualified Code(s): E87.70 - Fluid overload, unspecified Is this a current diagnosis for this admission?: YesPlan: This is secondary to hypoalbuminemia causing third spacing of fluid into the extravascular space. (5) Bilateral pleural effusion Is this a current diagnosis for this admission?: YesPlan: Could likely be a result of hypoalbuminemia as well. (6) Pneumonia Qualifiers: Pneumonia type: due to unspecified organism Laterality: left Lung location: lower lobe of lung Qualified Code(s): J18.1 - Lobar pneumonia, unspecified organism Is this a current diagnosis for this admission?: YesPlan: On IV antibiotics per primary service. (7) Anemia in chronic kidney disease (CKD) Is this a current diagnosis for this admission?: Yes (8) Metabolic acidosis Is this a current diagnosis for this admission?: YesPlan: Secondary to acute on chronic kidney disease. Questionable if there is any superimposed sepsis. (9) Malnutrition Is this a current diagnosis for this admission?: YesPlan: Due to poor oral intake causing hypo-albuminemia. (10) Hypomagnesemia Is this a current diagnosis for this admission?: YesPlan: Diuretic induced. Replace as necessary. (11) Depression Is this a current diagnosis for this admission?: Yes - Notes Notes: The patient has been persistently saying that she just wants to be let go however she she agrees with continuation of current treatment. The granddaughter is currently at bedside and she told me that her mother, the patient's daughter will be coming tomorrow to discuss this plan of care with patient. So I told them that if they want the patient to have no treatment, option will be to have the patient to be on comfort care or hospice. They will discuss this and let us know. I also informed Deena , her nurse today about this. Thank you very much for this consultation. - Time Time Spent: 50 to 70 Minutes
[2016-03-04] MEDS ORDERED: LIDOCAINE 5% (700 MG) TRANSDERMAL ADH..PATCH TP ONE (18:00)
[2016-03-04] MEDS: ACETAMINOPHEN 325 MG TABLET PO PRN (19:04)
[2016-03-05] MEDS: CEFEPIME HCL 0.5 GM in DEXTROSE 5%-WATER 25 ML IV SCH (06:21)
[2016-03-05] MEDS: HYDROCORTISONE SOD SUCCINATE INJ/PF 100 MG/2 ML SDV IV SCH ×2 (06:21→22:10)
--- NOTE | 2016-03-05 08:34 | PDOC PROGRESS REPORT ---
Subjective Progress Note for:: 03/05/16 Subjective:: Patient seen on morning rounds. She is resting comfortably in bed sleeping . Awakens to verbal stimuli. Denies any complaints at the present time. She did refuse morning blood work. She has told nursing staff she is tired and does not want to be "poked.." anymore. She remains on neosynephrine at 20mcg maintaining systolic BP of 100 mmHg. No family presently at the bedside. Her daughter is her MPOA and will be in later today. Physical Exam Vital Signs: Temp Pulse Resp BP Pulse Ox 97.3 F 115 H 15 101/65 96 03/05/16 07:36 03/05/16 07:36 03/05/16 07:36 03/05/16 07:36 03/05/16 07:36 Intake & Output 03/04/16 03/05/16 03/06/16 06:59 06:59 06:59 Intake Total 372 485 Output Total 790 2525 60 Balance -418 -2040 -60 Weight 69.5 kg 68.3 kg General appearance: PRESENT: no acute distress, well-developed, well-nourished Head exam: PRESENT: atraumatic, normocephalic Eye exam: PRESENT: conjunctiva pink, EOMI, PERRLA. ABSENT: scleral icterus Ear exam: PRESENT: normal external ear exam Mouth exam: PRESENT: neck supple, tongue midline Neck exam: ABSENT: carotid bruit, JVD, lymphadenopathy, thyromegaly Respiratory exam: PRESENT: decreased breath sounds - left greater than right. ABSENT: rales, rhonchi, wheezes Pulses: PRESENT: normal dorsalis pedis pul Vascular exam: PRESENT: normal capillary refill GI/Abdominal exam: PRESENT: normal bowel sounds, soft. ABSENT: distended, guarding, mass, organolmegaly, rebound, tenderness Rectal exam: PRESENT: deferred Extremities exam: PRESENT: full ROM. ABSENT: calf tenderness, clubbing, pedal edema Neurological exam: PRESENT: alert, awake, oriented to person, oriented to place , oriented to time, oriented to situation, CN II-XII grossly intact. ABSENT: motor sensory deficit Psychiatric exam: PRESENT: appropriate affect, normal mood. ABSENT: homicidal ideation, suicidal ideation Skin exam: PRESENT: dry, intact, warm. ABSENT: cyanosis, rash Results Laboratory Results: 03/04/16 00:43 03/04/16 00:43 03/03/16 03/04/16 17:49 00:43 CK-MB (CK-2) 3.37 3.18 NT-Pro-B Natriuret Pep [id number] H Impressions: Chest X-Ray 03/03/16 11:23 IMPRESSION: LEFT LOWER LOBE INFILTRATE AND PROBABLE PLEURAL EFFUSION. Chest CT 03/03/16 12:40 IMPRESSION: BILATERAL PLEURAL EFFUSIONS, LEFT GREATER THAN RIGHT, WITH BASILAR ATELECTASIS. THERE IS ALSO EVIDENCE OF MODERATE ASCITES IN THE VISUALIZED UPPER ABDOMEN. Lung Scan-VQ NM 03/03/16 14:48 IMPRESSION: DECREASED ACTIVITY IN THE LEFT LUNG SECONDARY TO PLEURAL EFFUSION. LOW PROBABILITY FOR PULMONARY EMBOLISM. Assessment & Plan - Diagnosis (1) SIRS (systemic inflammatory response syndrome) Is this a current diagnosis for this admission?: YesPlan: Patient still requiring neosynephrine gtt to maintain blood pressure greater than 100 mm Hg. Will wean as tolerates (2) Anemia in chronic kidney disease (CKD) Is this a current diagnosis for this admission?: YesPlan: Patient refused morning labs will follow as able. No over bleeding (3) Hypotension Qualifiers: Hypotension type: unspecified hypotension type Qualified Code(s): I95.9 - Hypotension, unspecified Is this a current diagnosis for this admission?: YesPlan: Contiues to require pressor support. Questionable sepsis. Lactic acid is negative. She does have left lower lobe infiltrate. Bilateral pleural effusions , left greater than right. She is edematous most likely due to hypoalbuminemia from poor intake causing third spacing of fluids. (4) Pneumonia Qualifiers: Pneumonia type: due to unspecified organism Laterality: left Lung location: lower lobe of lung Qualified Code(s): J18.1 - Lobar pneumonia, unspecified organism Is this a current diagnosis for this admission?: YesPlan: Will continue broad spectrum antibiotics await cultures (5) Metabolic acidosis Is this a current diagnosis for this admission?: YesPlan: Secondary to acute on chronic kidney injury. (6) Hypoalbuminemia Is this a current diagnosis for this admission?: YesPlan: Secondary to poor nutritional intake (7) COPD (chronic obstructive pulmonary disease) Qualifiers: COPD type: unspecified COPD Qualified Code(s): J44.9 - Chronic obstructive pulmonary disease, unspecified Is this a current diagnosis for this admission?: YesPlan: Continue nebulizers. Stable at the present time (8) Wwouo-en-dygmboo renal failure Is this a current diagnosis for this admission?: YesPlan: Avoid nephrotoxic drugs and dosages.Dr Pollard following for nephrology - Time Time Spent with patient: 25-34 minutes Critical Time spent with patient: 15-24 minutes Medications reviewed and adjusted accordingly: Yes Anticipated discharge: Acute Rehab
[2016-03-05] MEDS ORDERED: HEPARIN SOD (PORCINE) 5,000 UNIT/ML 1 ML SYRINGE SUBCUT SCH (10:00)
[2016-03-05] MEDS ORDERED: COLLAGENASE CLOSTRIDIUM HIST. OINT 30 GM TOP SCH (10:00)
[2016-03-05] MEDS: FUROSEMIDE INJ/PF 20 MG/2 ML SDV IV SCH ×2 (10:17→22:10)
[2016-03-05] MEDS: ASPIRIN 81 MG TABLET, CHEWABLE PO SCH (10:17)
[2016-03-05] MEDS: ALBUMIN HUMAN 50 ML IV SCH (10:18)
[2016-03-05] MEDS: ACETAMINOPHEN 325 MG TABLET PO PRN (10:18)
[2016-03-05] MEDS ORDERED: IPRATROPIUM/ALBUTEROL 0.5-2.5 MG/3 ML AMPUL NEB PRN (11:41)
[2016-03-05] MEDS ORDERED: (PENDING PHARMACY ID) (Calcium Carbonate [Calcium] 600 MG) PO PRN (11:41)
[2016-03-05] MEDS: LIDOCAINE 5% (700 MG) TRANSDERMAL ADH..PATCH TP SCH (12:02)
[2016-03-05] MEDS: HYDROCODONE/ACETAMINOPHEN 5-325 MG TABLET PO PRN ×2 (12:02→17:44)
--- NOTE | 2016-03-05 13:37 | Progress Note ---
Provider Note Provider Note: Met with patient, daughter and son-in-law to discuss goals of care. Patient states clearly she does not wish to have aggressive measures anymore. She wants comfort measures only. Daughter, who is her MPOA, is in agreement with mother's decision. Discussed hospice care and comfort care measures in the hospital. All in agreement. They chose [facility] for agency. They were contacted and referral sent.
[2016-03-05] MEDS: MORPHINE SULFATE 10 MG/ML INJ IV PRN (14:04)
[2016-03-05] MEDS: COLLAGENASE CLOSTRIDIUM HIST. OINT 30 GM TOP PRN (14:05)
[2016-03-05] MEDS ORDERED: LEVOFLOXACIN 250 MG/D5W RTU 250 MG/50 ML RTUPB IV SCH (18:00)
--- NOTE | 2016-03-06 08:20 | PDOC PROGRESS REPORT ---
Subjective Subjective:: Patient seen on morning rounds. She is resting comfortably in bed sleeping . Awakens to verbal stimuli. Denies any complaints at the present time. She had an uneventful night according to nursing staff. She denies any shortness of breath, cough or chest pain. She denies any fevers or chills. After meeting with patient and daughter yesterday she wants comfort care only. [facility] consulted. Physical Exam Vital Signs: Temp Pulse Resp BP Pulse Ox 98.1 F 118 H 20 102/61 93 03/05/16 11:55 03/05/16 11:55 03/05/16 14:00 03/05/16 13:25 03/05/16 14:00 Intake & Output 03/05/16 03/06/16 03/07/16 06:59 06:59 06:59 Intake Total 485 739 Output Total 2525 2009 Balance -2039 Weight 68.3 kg Results Laboratory Results: 03/04/16 00:43 03/04/16 00:43 03/03/16 03/04/16 17:49 00:43 CK-MB (CK-2) 3.37 3.18 NT-Pro-B Natriuret Pep [id number] H Impressions: Chest X-Ray 03/03/16 11:23 IMPRESSION: LEFT LOWER LOBE INFILTRATE AND PROBABLE PLEURAL EFFUSION. Chest CT 03/03/16 12:40 IMPRESSION: BILATERAL PLEURAL EFFUSIONS, LEFT GREATER THAN RIGHT, WITH BASILAR ATELECTASIS. THERE IS ALSO EVIDENCE OF MODERATE ASCITES IN THE VISUALIZED UPPER ABDOMEN. Lung Scan-VQ NM 03/03/16 14:48 IMPRESSION: DECREASED ACTIVITY IN THE LEFT LUNG SECONDARY TO PLEURAL EFFUSION. LOW PROBABILITY FOR PULMONARY EMBOLISM. Assessment & Plan - Diagnosis (1) SIRS (systemic inflammatory response syndrome) Is this a current diagnosis for this admission?: YesPlan: Patient is normotensive off pressors. Resolved (2) Anemia in chronic kidney disease (CKD) Is this a current diagnosis for this admission?: YesPlan: No signs of bleeding. Comfort care only no labs will be drawn (3) Hypotension Qualifiers: Hypotension type: unspecified hypotension type Qualified Code(s): I95.9 - Hypotension, unspecified Is this a current diagnosis for this admission?: YesPlan: Resolved. Comfort measures only (4) Pneumonia Qualifiers: Pneumonia type: due to unspecified organism Laterality: left Lung location: lower lobe of lung Qualified Code(s): J18.1 - Lobar pneumonia, unspecified organism Is this a current diagnosis for this admission?: Yes (5) Metabolic acidosis Is this a current diagnosis for this admission?: Yes (6) Hypoalbuminemia Is this a current diagnosis for this admission?: Yes (7) COPD (chronic obstructive pulmonary disease) Qualifiers: COPD type: unspecified COPD Qualified Code(s): J44.9 - Chronic obstructive pulmonary disease, unspecified Is this a current diagnosis for this admission?: YesPlan: Continue nebulizers for comfort only. Not requiring oxygen (8) Fctdr-ul-obhieaj renal failure Is this a current diagnosis for this admission?: YesPlan: Not checking labs. Comfort measures only - Time Time Spent with patient: 25-34 minutes Critical Time spent with patient: 15-24 minutes Medications reviewed and adjusted accordingly: Yes Anticipated discharge: SNF, Hospice Within: when bed available
[2016-03-06] MEDS: HYDROCODONE/ACETAMINOPHEN 5-325 MG TABLET PO PRN ×2 (08:25→15:42)
[2016-03-06] MEDS: FUROSEMIDE INJ/PF 20 MG/2 ML SDV IV SCH ×2 (09:51→21:55)
[2016-03-06] MEDS: HYDROCORTISONE SOD SUCCINATE INJ/PF 100 MG/2 ML SDV IV SCH ×2 (09:51→21:55)
[2016-03-06] MEDS: LIDOCAINE 5% (700 MG) TRANSDERMAL ADH..PATCH TP SCH (09:51)
[2016-03-06] MEDS: ASPIRIN 81 MG TABLET, CHEWABLE PO SCH ×2 (09:52→09:53)
[2016-03-06] MEDS: CETIRIZINE 10 MG TABLET PO SCH (09:52)
[2016-03-06] MEDS: CITALOPRAM HYDROBROMIDE 20 MG TABLET PO SCH (09:52)
[2016-03-06] MEDS ORDERED: [UNRECOGNIZED DRUG - MIXTURE] PO SCH (10:00)
[2016-03-06] MEDS: COLLAGENASE CLOSTRIDIUM HIST. OINT 30 GM TOP PRN (11:21)
[2016-03-06] MEDS: MORPHINE SULFATE 10 MG/ML INJ IV PRN (11:21)
--- NOTE | 2016-03-07 11:52 | PDOC PROGRESS REPORT ---
Subjective Progress Note for:: 03/07/16 Subjective:: Patient seen on morning rounds. She is resting comfortably in bed sleeping . Awakens to verbal stimuli. Denies any complaints at the present time. She had an uneventful night according to nursing staff. She denies any shortness of breath, cough or chest pain. She denies any fevers or chills. After meeting with patient and daughter she wants comfort care only. [facility] has been consulted. Physical Exam Vital Signs: Temp Pulse Resp BP Pulse Ox 97.9 F 120 H 16 110/88 H 100 03/07/16 08:00 03/07/16 09:00 03/07/16 09:00 03/07/16 08:32 03/07/16 09:00 Intake & Output 03/06/16 03/07/16 03/08/16 06:59 06:59 06:59 Intake Total 739 957 340 Output Total 2009 1620 Cmllbwp -8162 -223 340 General appearance: PRESENT: no acute distress, well-developed, well-nourished Head exam: PRESENT: atraumatic Eye exam: PRESENT: conjunctival injection Ear exam: PRESENT: normal external ear exam Mouth exam: PRESENT: moist, tongue midline Neck exam: ABSENT: carotid bruit, JVD, lymphadenopathy, thyromegaly Respiratory exam: PRESENT: clear to auscultation anselmo. ABSENT: rales, rhonchi, wheezes Cardiovascular exam: PRESENT: RRR. ABSENT: diastolic murmur, rubs, systolic murmur Pulses: PRESENT: normal dorsalis pedis pul Vascular exam: PRESENT: normal capillary refill GI/Abdominal exam: PRESENT: normal bowel sounds, soft. ABSENT: distended, guarding, mass, organolmegaly, rebound, tenderness Rectal exam: PRESENT: deferred Extremities exam: PRESENT: full ROM. ABSENT: calf tenderness, clubbing, pedal edema Neurological exam: PRESENT: alert, awake, oriented to person, oriented to place , oriented to time, oriented to situation, CN II-XII grossly intact. ABSENT: motor sensory deficit Psychiatric exam: PRESENT: appropriate affect, normal mood. ABSENT: homicidal ideation, suicidal ideation Skin exam: PRESENT: dry, intact, warm. ABSENT: cyanosis, rash Results Laboratory Results: 03/04/16 00:43 03/04/16 00:43 03/03/16 03/04/16 17:49 00:43 CK-MB (CK-2) 3.37 3.18 NT-Pro-B Natriuret Pep [id number] H Impressions: Chest X-Ray 03/03/16 11:23 IMPRESSION: LEFT LOWER LOBE INFILTRATE AND PROBABLE PLEURAL EFFUSION. Chest CT 03/03/16 12:40 IMPRESSION: BILATERAL PLEURAL EFFUSIONS, LEFT GREATER THAN RIGHT, WITH BASILAR ATELECTASIS. THERE IS ALSO EVIDENCE OF MODERATE ASCITES IN THE VISUALIZED UPPER ABDOMEN. Lung Scan-VQ NM 03/03/16 14:48 IMPRESSION: DECREASED ACTIVITY IN THE LEFT LUNG SECONDARY TO PLEURAL EFFUSION. LOW PROBABILITY FOR PULMONARY EMBOLISM. Assessment & Plan - Diagnosis (1) SIRS (systemic inflammatory response syndrome) Is this a current diagnosis for this admission?: YesPlan: Patient is normotensive off pressors. Resolved (2) Anemia in chronic kidney disease (CKD) Is this a current diagnosis for this admission?: YesPlan: No signs of bleeding. Comfort care only no labs will be drawn (3) Hypotension Qualifiers: Hypotension type: unspecified hypotension type Qualified Code(s): I95.9 - Hypotension, unspecified Is this a current diagnosis for this admission?: YesPlan: Resolved. Comfort measures only (4) Pneumonia Qualifiers: Pneumonia type: due to unspecified organism Laterality: left Lung location: lower lobe of lung Qualified Code(s): J18.1 - Lobar pneumonia, unspecified organism Is this a current diagnosis for this admission?: YesPlan: Will continue broad spectrum antibiotics await cultures (5) Metabolic acidosis Is this a current diagnosis for this admission?: YesPlan: Secondary to acute on chronic kidney injury. (6) Hypoalbuminemia Is this a current diagnosis for this admission?: YesPlan: Secondary to poor nutritional intake (7) COPD (chronic obstructive pulmonary disease) Qualifiers: COPD type: unspecified COPD Qualified Code(s): J44.9 - Chronic obstructive pulmonary disease, unspecified Is this a current diagnosis for this admission?: YesPlan: Continue nebulizers for comfort only. Not requiring oxygen (8) Puftx-ek-fupscqb renal failure Is this a current diagnosis for this admission?: YesPlan: Not checking labs. Comfort measures only - Time Time Spent with patient: 25-34 minutes Critical Time spent with patient: 15-24 minutes Medications reviewed and adjusted accordingly: Yes Anticipated discharge: Hospice
[2016-03-07] MEDS: HYDROCORTISONE SOD SUCCINATE INJ/PF 100 MG/2 ML SDV IV SCH ×2 (15:55→23:04)
[2016-03-07] MEDS: CETIRIZINE 10 MG TABLET PO SCH (15:55)
[2016-03-07] MEDS: CITALOPRAM HYDROBROMIDE 20 MG TABLET PO SCH (15:55)
[2016-03-07] MEDS: LIDOCAINE 5% (700 MG) TRANSDERMAL ADH..PATCH TP SCH (15:55)
[2016-03-07] MEDS: FUROSEMIDE INJ/PF 20 MG/2 ML SDV IV SCH ×2 (15:55→23:04)
[2016-03-07] MEDS: ASPIRIN 81 MG TABLET, CHEWABLE PO SCH ×2 (15:55)
[2016-03-07] MEDS: MORPHINE SULFATE 10 MG/ML INJ IV PRN (16:52)
--- NOTE | 2016-03-08 08:45 | PDOC PROGRESS REPORT ---
Subjective Progress Note for:: 03/08/16 Subjective:: Patient seen on morning rounds. She is resting comfortably in bed sleeping . Awakens to verbal stimuli. Denies any complaints at the present time. She had an uneventful night according to nursing staff. She denies any shortness of breath, cough or chest pain. She denies any fevers or chills. After meeting with patient and daughter she wants comfort care only. [facility] has been consulted. Physical Exam Vital Signs: Temp Pulse Resp BP Pulse Ox 97.7 F 75 18 102/75 96 03/07/16 19:53 03/07/16 19:53 03/07/16 19:53 03/07/16 19:53 03/07/16 19:53 Intake & Output 03/07/16 03/08/16 03/09/16 06:59 06:59 06:59 Intake Total 957 580 Output Total 1620 1890 Balance -663 -1310 General appearance: PRESENT: no acute distress, well-developed, well-nourished Head exam: PRESENT: atraumatic, normocephalic Eye exam: PRESENT: conjunctiva pink, EOMI, PERRLA. ABSENT: scleral icterus Ear exam: PRESENT: normal external ear exam Mouth exam: PRESENT: moist, tongue midline Neck exam: ABSENT: carotid bruit, JVD, lymphadenopathy, thyromegaly Respiratory exam: PRESENT: clear to auscultation anselmo. ABSENT: rales, rhonchi, wheezes Cardiovascular exam: PRESENT: RRR. ABSENT: diastolic murmur, rubs, systolic murmur Pulses: PRESENT: normal dorsalis pedis pul Vascular exam: PRESENT: normal capillary refill GI/Abdominal exam: PRESENT: normal bowel sounds, soft. ABSENT: distended, guarding, mass, organolmegaly, rebound, tenderness Rectal exam: PRESENT: deferred Extremities exam: PRESENT: full ROM. ABSENT: calf tenderness, clubbing, pedal edema Neurological exam: PRESENT: alert, awake, oriented to person, oriented to place , oriented to time, oriented to situation, CN II-XII grossly intact. ABSENT: motor sensory deficit Psychiatric exam: PRESENT: appropriate affect, normal mood. ABSENT: homicidal ideation, suicidal ideation Skin exam: PRESENT: dry, intact, warm. ABSENT: cyanosis, rash Results Laboratory Results: 03/04/16 00:43 03/04/16 00:43 03/03/16 03/04/16 17:49 00:43 CK-MB (CK-2) 3.37 3.18 NT-Pro-B Natriuret Pep [id number] H Impressions: Chest X-Ray 03/03/16 11:23 IMPRESSION: LEFT LOWER LOBE INFILTRATE AND PROBABLE PLEURAL EFFUSION. Chest CT 03/03/16 12:40 IMPRESSION: BILATERAL PLEURAL EFFUSIONS, LEFT GREATER THAN RIGHT, WITH BASILAR ATELECTASIS. THERE IS ALSO EVIDENCE OF MODERATE ASCITES IN THE VISUALIZED UPPER ABDOMEN. Lung Scan-VQ NM 03/03/16 14:48 IMPRESSION: DECREASED ACTIVITY IN THE LEFT LUNG SECONDARY TO PLEURAL EFFUSION. LOW PROBABILITY FOR PULMONARY EMBOLISM. Assessment & Plan - Diagnosis (1) SIRS (systemic inflammatory response syndrome) Is this a current diagnosis for this admission?: YesPlan: Patient is normotensive off pressors. Resolved (2) Anemia in chronic kidney disease (CKD) Is this a current diagnosis for this admission?: YesPlan: No signs of bleeding. Comfort care only no labs will be drawn (3) Hypotension Qualifiers: Hypotension type: unspecified hypotension type Qualified Code(s): I95.9 - Hypotension, unspecified Is this a current diagnosis for this admission?: YesPlan: Resolved. Comfort measures only (4) Pneumonia Qualifiers: Pneumonia type: due to unspecified organism Laterality: left Lung location: lower lobe of lung Qualified Code(s): J18.1 - Lobar pneumonia, unspecified organism Is this a current diagnosis for this admission?: YesPlan: Will continue broad spectrum antibiotics await cultures (5) Metabolic acidosis Is this a current diagnosis for this admission?: YesPlan: Secondary to acute on chronic kidney injury. (6) Hypoalbuminemia Is this a current diagnosis for this admission?: YesPlan: Secondary to poor nutritional intake (7) COPD (chronic obstructive pulmonary disease) Qualifiers: COPD type: unspecified COPD Qualified Code(s): J44.9 - Chronic obstructive pulmonary disease, unspecified Is this a current diagnosis for this admission?: YesPlan: Continue nebulizers for comfort only. Not requiring oxygen (8) Eefzh-jr-gupoulf renal failure Is this a current diagnosis for this admission?: YesPlan: Not checking labs. Comfort measures only - Time Time Spent with patient: 25-34 minutes Critical Time spent with patient: 15-24 minutes Medications reviewed and adjusted accordingly: Yes Anticipated discharge: SNF, Hospice
[2016-03-08] MEDS: FUROSEMIDE INJ/PF 20 MG/2 ML SDV IV SCH ×2 (09:57→21:08)
[2016-03-08] MEDS: ASPIRIN 81 MG TABLET, CHEWABLE PO SCH ×2 (09:57)
[2016-03-08] MEDS: CITALOPRAM HYDROBROMIDE 20 MG TABLET PO SCH (09:57)
[2016-03-08] MEDS: CETIRIZINE 10 MG TABLET PO SCH (09:57)
[2016-03-08] MEDS: HYDROCORTISONE SOD SUCCINATE INJ/PF 100 MG/2 ML SDV IV SCH ×2 (09:57→21:08)
[2016-03-08] MEDS: LIDOCAINE 5% (700 MG) TRANSDERMAL ADH..PATCH TP SCH (10:54)
--- NOTE | 2016-03-08 11:37 | PDOC PROGRESS REPORT ---
Subjective Progress Note for:: 03/08/16 Subjective:: Patient seen on morning rounds. She is resting comfortably in bed sleeping . Awakens to verbal stimuli. Denies any complaints at the present time. She had an uneventful night according to nursing staff. She denies any shortness of breath, cough or chest pain. She denies any fevers or chills. After meeting with patient and daughter she wants comfort care only. [facility] has been consulted. Physical Exam Vital Signs: Temp Pulse Resp BP Pulse Ox 97.7 F 107 H 16 102/75 93 03/07/16 19:53 03/08/16 09:00 03/08/16 09:00 03/07/16 19:53 03/08/16 09:00 Intake & Output 03/07/16 03/08/16 03/09/16 06:59 06:59 06:59 Intake Total 957 580 Output Total 1620 1890 Balance -663 -1310 Results Laboratory Results: 03/04/16 00:43 03/04/16 00:43 03/03/16 03/04/16 17:49 00:43 CK-MB (CK-2) 3.37 3.18 NT-Pro-B Natriuret Pep [id number] H Impressions: Chest X-Ray 03/03/16 11:23 IMPRESSION: LEFT LOWER LOBE INFILTRATE AND PROBABLE PLEURAL EFFUSION. Chest CT 03/03/16 12:40 IMPRESSION: BILATERAL PLEURAL EFFUSIONS, LEFT GREATER THAN RIGHT, WITH BASILAR ATELECTASIS. THERE IS ALSO EVIDENCE OF MODERATE ASCITES IN THE VISUALIZED UPPER ABDOMEN. Lung Scan-VQ NM 03/03/16 14:48 IMPRESSION: DECREASED ACTIVITY IN THE LEFT LUNG SECONDARY TO PLEURAL EFFUSION. LOW PROBABILITY FOR PULMONARY EMBOLISM. Assessment & Plan - Diagnosis (1) SIRS (systemic inflammatory response syndrome) Is this a current diagnosis for this admission?: YesPlan: Patient is normotensive off pressors. Resolved (2) Anemia in chronic kidney disease (CKD) Is this a current diagnosis for this admission?: YesPlan: No signs of bleeding. Comfort care only no labs will be drawn (3) Hypotension Qualifiers: Hypotension type: unspecified hypotension type Qualified Code(s): I95.9 - Hypotension, unspecified Is this a current diagnosis for this admission?: YesPlan: Resolved. Comfort measures only (4) Pneumonia Qualifiers: Pneumonia type: due to unspecified organism Laterality: left Lung location: lower lobe of lung Qualified Code(s): J18.1 - Lobar pneumonia, unspecified organism Is this a current diagnosis for this admission?: YesPlan: Will continue broad spectrum antibiotics await cultures (5) Metabolic acidosis Is this a current diagnosis for this admission?: YesPlan: Secondary to acute on chronic kidney injury. (6) Hypoalbuminemia Is this a current diagnosis for this admission?: YesPlan: Secondary to poor nutritional intake (7) COPD (chronic obstructive pulmonary disease) Qualifiers: COPD type: unspecified COPD Qualified Code(s): J44.9 - Chronic obstructive pulmonary disease, unspecified Is this a current diagnosis for this admission?: YesPlan: Continue nebulizers for comfort only. Not requiring oxygen (8) Kbufv-bo-jedawup renal failure Is this a current diagnosis for this admission?: YesPlan: Not checking labs. Comfort measures only - Time Time Spent with patient: 15-24 minutes Critical Time spent with patient: Less than 15 minutes Medications reviewed and adjusted accordingly: Yes Anticipated discharge: SNF, Hospice Within: when bed available
[2016-03-08] MEDS: MORPHINE SULFATE 10 MG/ML INJ IV PRN (19:59)
[2016-03-09] MEDS: MORPHINE SULFATE 10 MG/ML INJ IV PRN
[2016-03-09] MEDS: CETIRIZINE 10 MG TABLET PO SCH (10:49)
[2016-03-09] MEDS: FUROSEMIDE INJ/PF 20 MG/2 ML SDV IV SCH (10:49)
[2016-03-09] MEDS: HYDROCORTISONE SOD SUCCINATE INJ/PF 100 MG/2 ML SDV IV SCH (10:49)
[2016-03-09] MEDS: ASPIRIN 81 MG TABLET, CHEWABLE PO SCH ×2 (10:49)
[2016-03-09] MEDS: CITALOPRAM HYDROBROMIDE 20 MG TABLET PO SCH (10:49)
[2016-03-09] MEDS: LIDOCAINE 5% (700 MG) TRANSDERMAL ADH..PATCH TP SCH (10:54)
[2016-03-09] MEDS: COLLAGENASE CLOSTRIDIUM HIST. OINT 30 GM TOP PRN (11:31)
[2016-03-09 12:25] VITALS: BP 109/55
--- NOTE | 2016-03-09 12:36 | PDOC TRANSFER SUMMARY ---
General - Admit/Disc Date/PCP Admission Date/Primary Care Provider: 03/03/16 16:47 SOPHIE Pham QUINTON, Discharge Date: 03/09/16 - Discharge Diagnosis (1) SIRS (systemic inflammatory response syndrome) Is this a current diagnosis for this admission?: YesSummary: Resolved (2) Anemia in chronic kidney disease (CKD) Is this a current diagnosis for this admission?: YesSummary: Stable (3) Hypotension Is this a current diagnosis for this admission?: YesSummary: Patient is Hospice care. Comfort measures (4) Pneumonia Is this a current diagnosis for this admission?: YesSummary: Resolving (5) Metabolic acidosis Is this a current diagnosis for this admission?: YesSummary: Resolved comfort measures only (6) Hypoalbuminemia Is this a current diagnosis for this admission?: YesSummary: Comfort measures only (7) COPD (chronic obstructive pulmonary disease) Is this a current diagnosis for this admission?: YesSummary: Nebulizers as needed (8) Thzoa-bc-aykbgnj renal failure Is this a current diagnosis for this admission?: YesSummary: Not checking labs.Comfort measures only - Additional Information Resuscitation Status: Comfort Measures Only Discharge Diet: Regular - Gluten free Discharge Activity: Bedrest, Other - Turn every 2 hrs to prevent further breakdown Home Medications: Aspirin [Aspirin 81 mg Chewable Tablet] 81 mg PO DAILY #0 tab.chew 03/05/15 Calcium Carbonate [Calcium] 600 mg PO PRN PRN 07/01/15 Citalopram Hydrobromide [Celexa 20 mg Tablet] 20 mg PO DAILY 07/01/15 Gluc/Yanick-MSM#1/Vit C/Jose Francisco/Bor [E[place]knit-Emwdn-MBW Complex Cplt] 1 each PO DAILY 07/01/15 Ipratropium/Albuterol Sulfate [Duoneb 3 ml Ampul] 3 ml IH QID 07/01/15 Cetirizine HCl [Zyrtec 10 mg Tablet] 10 mg PO DAILY #0 tablet 07/07/15 Ipratropium/Albuterol Sulfate [Duoneb 3 ml Ampul] 3 ml NEB RTQ6HP PRN #0 vial.neb 07/07/15 Isosorbide Mononitrate [Imdur 30 mg Tablet.er] 30 mg PO DAILY #0 tab.er.24h 05/19 Acetaminophen [Tylenol 325 mg Tablet] 650 mg PO Q4HP PRN tablet 03/09/16 Collagenase Clostridium Hist. 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 Her kidney function was also mildly worse with her labs on March 02 she has some BUN of 38 and creatinine of 2.63 with estimated GFR of 17 compared to a BUN of 32 and creatinine of 2.24 with estimated GFR of 21 1 07/07/2015. Because of this presentation I advised the patient to go to the emergency room for further evaluation and management. She has the same findings in the emergency room upon presentation. Further history from the [facility] at [facility] that I obtained from the nurses revealed that the patient has been refusing her medications for at least the last couple days. Her vital signs in the mcc showed that her blood pressure has been running 120s over 70s to 80s with pulse rate in the 70s. Patient has gained 6 pounds due to the edema. Patient also initial report some weakness, dizziness and some shortness of breath when I saw her yesterday. Today when I saw her again with her granddaughter at bedside, they confirmed that she has not really been eating much in the mcc. Patient claims that the food is cold so she doesn't want to eat. Patient reiterates that she just wants to be let go and doesn't want much treatment. She also reiterates that she does not want dialysis at any time. However when I ask her if she wants to continue that current treatment that we are doing she also said that she wants that for now. Workup in the emergency room upon presentation include chest x-ray which shows left lower lobe infiltrate. CT scan of the chest showed bilateral pleural effusion, left greater than the right. VQ scan showed low probability for pulmonary embolism. Echocardiogram showed normal ejection fraction of 65% without any pericardial effusion. Her albumin was very low at 1.4. She has some leukocytosis. Her urinalysis however did not show any significant proteinuria nor hematuria. Her kidney function was unchanged from earlier. I discussed the case with Dr. Leblanc yesterday. Patient is now being given albumin and Lasix. So far she is putting out a good amount of urine output. She is also being given IV antibiotics. Because of hypotension she was started on Mak-Synephrine. So far her blood pressure is being sustained on the 90s to low 100s for systolic blood pressure. She continues to have very poor intake. Hospital Course Hospital Course: Patient initially was admitted to the ICU on neosynephrine drip for blood pressure support due to hypotension. She was given IV hydration and broad spectrum antibiotics for sepsis, most likely from pneumonia and stage 4 sacral wound. She had surgialist consulted for debridement of her sacral wound by Dr Paez. Dr Pollard saw the patient for worsening renal failure. The patient was able to be weaned off pressors the following day. She decided that day, along with her daughter, that she no longer wanted active care, but wanted comfort measures only . They elected a consult with [facility] services. Her appetite improved and her pain has been well controlled with frequent repositioning and prn analgesics. She can be transferred back to [place] with [facility] for symptom management. Physical Exam Vital Signs: Temp Pulse Resp BP Pulse Ox 97.7 F 85 18 121/74 93 03/09/16 08:17 03/09/16 08:17 03/09/16 08:17 03/09/16 08:17 03/09/16 08:17 Intake & Output 03/08/16 03/09/16 03/10/16 06:59 06:59 06:59 Intake Total 580 579 Output Total 1890 685 Balance -1310 -106 Weight 66.9 kg 66.9 kg General appearance: PRESENT: no acute distress, well-developed, well-nourished Head exam: PRESENT: atraumatic, normocephalic Eye exam: PRESENT: conjunctiva pink, EOMI, PERRLA. ABSENT: scleral icterus Ear exam: PRESENT: normal external ear exam Mouth exam: PRESENT: moist, tongue midline Neck exam: ABSENT: carotid bruit, JVD, lymphadenopathy, thyromegaly Respiratory exam: PRESENT: clear to auscultation anselmo. ABSENT: rales, rhonchi, wheezes Cardiovascular exam: PRESENT: RRR. ABSENT: diastolic murmur, rubs, systolic murmur Pulses: PRESENT: normal dorsalis pedis pul Vascular exam: PRESENT: normal capillary refill GI/Abdominal exam: PRESENT: normal bowel sounds, soft. ABSENT: distended, guarding, mass, organolmegaly, rebound, tenderness Rectal exam: PRESENT: deferred Extremities exam: PRESENT: calf tenderness Musculoskeletal exam: PRESENT: tenderness - over large sacral decubitus Neurological exam: PRESENT: alert, awake, oriented to person, oriented to place , oriented to situation, CN II-XII grossly intact Psychiatric exam: PRESENT: appropriate affect, normal mood Skin exam: PRESENT: dry - stage IV sacral wound, warm Results Laboratory Results: 03/04/16 00:43 03/04/16 00:43 03/03/16 03/04/16 17:49 00:43 CK-MB (CK-2) 3.37 3.18 NT-Pro-B Natriuret Pep [id number] H Impressions: Chest X-Ray 03/03/16 11:23 IMPRESSION: LEFT LOWER LOBE INFILTRATE AND PROBABLE PLEURAL EFFUSION. Chest CT 03/03/16 12:40 IMPRESSION: BILATERAL PLEURAL EFFUSIONS, LEFT GREATER THAN RIGHT, WITH BASILAR ATELECTASIS. THERE IS ALSO EVIDENCE OF MODERATE ASCITES IN THE VISUALIZED UPPER ABDOMEN. Lung Scan-VQ NM 03/03/16 14:48 IMPRESSION: DECREASED ACTIVITY IN THE LEFT LUNG SECONDARY TO PLEURAL EFFUSION. LOW PROBABILITY FOR PULMONARY EMBOLISM. Transfer Plan - Disposition Transfer Plan: Discharge back to [facility] with [facility] following for symptom management - Time Spent with Patient Time spent with patient: Less than 30 Minutes Qualifiers PATEINT BEING DISCHARGED WITH ANY OF THE FOLLOWING DIAGNOSIS?: No Plan Discharge Plan: Discharge back to [place] with [facility] following for symptom management Time Spent: Less than 30 Minutes
== END 2016-03-09 14:40 | DRG 166 ==
LOC: ER 11:12 → UNDOADMIN 16:47 → EH 16:47 → ICU 23:03 → 2N 03-08 21:15
PROVIDERS: ADMIT Emergency Medicine; ATTEND Emergency Medicine
PROC: 0JB70ZZ Excision of Back Subcutaneous Tissue and Fascia, Open Approach (ICD-10-PCS; principal; 2016-03-04)
DX: J18.9 Pneumonia, unspecified organism (principal); L89.154 Pressure ulcer of sacral region, stage 4; I13.0 Hypertensive heart and chronic kidney disease with heart failure and stage 1 through stage 4 chronic kidney disease, or unspecified chronic kidney disease; I50.30 Unspecified diastolic (congestive) heart failure; N17.9 Acute kidney failure, unspecified; N18.4 Chronic kidney disease, stage 4 (severe); E46 Unspecified protein-calorie malnutrition; E87.2 Acidosis; D63.1 Anemia in chronic kidney disease; Z51.5 Encounter for palliative care; J44.9 Chronic obstructive pulmonary disease, unspecified; E83.42 Hypomagnesemia; F32.9 Major depressive disorder, single episode, unspecified; I25.2 Old myocardial infarction; E88.09 Other disorders of plasma-protein metabolism, not elsewhere classified; I95.9 Hypotension, unspecified; I25.10 Atherosclerotic heart disease of native coronary artery without angina pectoris; K21.9 Gastro-esophageal reflux disease without esophagitis; F03.90 Unspecified dementia, unspecified severity, without behavioral disturbance, psychotic disturbance, mood disturbance, and anxiety; M06.9 Rheumatoid arthritis, unspecified; Z95.5 Presence of coronary angioplasty implant and graft; Z87.891 Personal history of nicotine dependence; Z79.82 Long term (current) use of aspirin; Z79.899 Other long term (current) drug therapy; Z88.1 Allergy status to other antibiotic agents; Z88.8 Allergy status to other drugs, medicaments and biological substances; Z88.0 Allergy status to penicillin
CPT/HCPCS: 36415; 51701; 71010; 71250; 78582; 80048; 80053; 81001; 82533; 82550; 82553; 82570; 82803; 83605; 83735; 83880; 84443; 84484; 85025; 85610; 86850; 86900; 86901; 87040; 87086; 93005; 93010; 93321; 96360; 99291; A9540; A9567; J0692; J1644; J1720; J1940; J1956; J2270; J2370; J3370; J3490; J7030; J7060; P9047; Q9969

== ENCOUNTER 2016-04-15 18:48 | Emergency (ER) | payer MEDICARE, MEDICAID ==
[2016-04-15 19:09] VITALS: BP 106/62
[2016-04-15] MEDS ORDERED: HYDROCODONE/ACETAMINOPHEN 5-325 MG TABLET PO ONE (19:31)
--- NOTE | 2016-04-15 19:43 | ER Document Report ---
ED General - General Chief Complaint: Rectal Bleeding Stated Complaint: RECTAL BLEEDING Information source: Emergency Med Personnel Cannot obtain history due to: Dementia Notes: Patient presents by EMS with concerns of a single episode of bright red blood per rectum. Staff at the facility apparently did not communicate to the on- call physician for the facility that patient was a DNR/comfort care only and should not have been transferred to the ED. Patient is severely demented no additional history can be obtained. She is on hospice care for end-stage dementia currently residing in a nursing facility. TRAVEL OUTSIDE OF THE [place] IN LAST 30 DAYS: No - Related Data Allergies/Adverse Reactions: codeine [Codeine] Allergy (Verified 09/07/13 18:24) erythromycin base [Erythromycin Base] Allergy (Verified 09/07/13 18:24) gluten [Gluten] Allergy (Verified 10/11/14 11:40) iodine [Iodine] Allergy (Verified 10/10/14 22:48) Penicillins Allergy (Verified 09/07/13 18:24) sulfamethoxazole [From Septra DS] Allergy (Verified 10/10/14 22:48) trimethoprim [From Septra DS] Allergy (Verified 10/10/14 22:48) Past Medical History - General Information source: Emergency Med Personnel Cannot obtain history due to: Dementia - Social History Smoking Status: Unknown if Ever Smoked Frequency of alcohol use: None Drug Abuse: None Lives with: [facility] Family History: Hypertension - Past Medical History Cardiac Medical History: Reports: Hx Coronary Artery Disease, Hx Heart Attack, Hx Hypertension, Hx Peripheral Vascular Disease Pulmonary Medical History: Reports: Hx COPD Renal/ Medical History: Reports: Hx Renal Insufficiency GI Medical History: Reports: Hx Gastroesophageal Reflux Disease Musculoskeltal Medical History: Reports Hx Arthritis Psychiatric Medical History: Reports: Hx Dementia - MILD Past Surgical History: Reports: Hx Coronary Stent - 2, Hx Orthopedic Surgery - Hip joint reconstruction, recently., Hx Vascular Surgery - Iliofemoral stents - Immunizations Hx Diphtheria, Pertussis, Tetanus Vaccination: No Hx Pneumococcal Vaccination: 12/09/12 Review of Systems - Review of Systems -: Yes ROS unobtainable due to patient's medical condition Physical Exam - Vital signs Vitals: Resp Pulse Ox 23 H 95 04/15/16 18:56 04/15/16 18:56 Interpretation: Tachycardic Notes: PHYSICAL EXAMINATION: GENERAL: Frail, elderly female in no acute distress. HEAD: Atraumatic, normocephalic. EYES: Pupils equal round and reactive to light, extraocular movements intact, sclera anicteric, conjunctiva are normal. ENT: nares patent, oropharynx clear without exudates. Moderately dry mucous membranes. NECK: Normal range of motion, supple without lymphadenopathy LUNGS: Breath sounds clear to auscultation bilaterally and equal. No wheezes rales or rhonchi. HEART: Irregularly irregular tachycardia, without murmurs ABDOMEN: Soft, nontender, normoactive bowel sounds. No guarding, no rebound. No masses appreciated. Rectal: Multiple external hemorrhoids. There is bright red blood in stool covering the patient's bottom. EXTREMITIES: no pitting or edema. No cyanosis. NEUROLOGICAL: No focal neurological deficits. Moves all extremities spontaneously and on command. PSYCH: Confused, oriented only to person. SKIN: Warm, Dry, normal turgor, no rashes or lesions noted. Course - Re-evaluation Re-evalutation: 04/15/16 20:08 Patient presents for bright red blood per rectum 1. Differential includes hemorrhoidal versus diverticular bleed. No active bleeding at the time of my assessment. Patient is tachycardic but in no acute distress. Immediately upon receiving the patient in the emergency room, I contacted her power of privacy attorney, her daughter, and clarify that the patient and her family do not want any diagnostic tests done, no blood draws, and no therapeutic interventions other than for the patient's comfort. I did contact the patient's on-call physician Dr. Ordoñez to request admission to the hospital for comfort measures as patient is on hospice until she can be transferred to her family's home on Monday. He declined saying she does not meet admission criteria. I also contacted the patient's primary hospice Center came here hospice to see if it is available inpatient beds in the hospice facility. They likewise do not have anything available at this time will send a on-call nurse to see the patient first thing in the morning for an additional assessment. Patient will be discharged back to the nursing facility at this time. - Vital Signs Vital signs: Temp Pulse Resp BP Pulse Ox 18 106/62 96 04/15/16 19:01 04/15/16 19:01 04/15/16 19:01 Discharge - Discharge Clinical Impression: Bright red blood per rectum Condition: Fair Disposition: HOME-SNF (ED ONLY) Additional Instructions: Please follow-up with your hospice care management team in the morning as scheduled. Return for any additional concerns, failure of pain control, or any other symptoms that are worrisome to you. Referrals: SOPHIE ALCANTARA MD [Primary Care Provider] - Follow up as needed
--- NOTE | 2016-04-16 08:42 | EKG REPORT ---
SEVERITY:- ABNORMAL ECG - SINUS TACHYCARDIA PAIRED VENTRICULAR PREMATURE COMPLEXES LOW VOLTAGE WITH RIGHT AXIS DEVIATION BORDERLINE R WAVE PROGRESSION, ANTERIOR LEADS BORDERLINE T ABNORMALITIES, ANTERIOR LEADS : Confirmed by: Roney Mora MD 16-Apr-2016 08:42:09
== END 2016-04-15 20:25 ==
LOC: ER 18:48
DX: K62.5 Hemorrhage of anus and rectum (principal); K64.4 Residual hemorrhoidal skin tags; F03.90 Unspecified dementia, unspecified severity, without behavioral disturbance, psychotic disturbance, mood disturbance, and anxiety; I25.10 Atherosclerotic heart disease of native coronary artery without angina pectoris; I25.2 Old myocardial infarction; I10 Essential (primary) hypertension; J44.9 Chronic obstructive pulmonary disease, unspecified; Z66 Do not resuscitate; Z88.5 Allergy status to narcotic agent; Z88.1 Allergy status to other antibiotic agents; Z91.048 Other nonmedicinal substance allergy status; Z88.3 Allergy status to other anti-infective agents; Z88.0 Allergy status to penicillin; Z98.61 Coronary angioplasty status; R00.0 Tachycardia, unspecified
CPT/HCPCS: 93005; 99284; 82272; 93010; A9270